=== PATIENT | male | born 1960 | race Caucasian/White ===

== ENCOUNTER → 2018-06-06 | Outpatient (CLI) | payer OTHER ==
--- NOTE | 2018-06-06 12:01 | PCVCIMAG ---
APPROVED REPORT Study performed: 06/06/2018 10:38:28 Exam: Stress Echocardiogram Indication: CAD s/p CABG, Hypertension, Hyperlipidemia Patient Location: Echo lab Stress Nurse: Paty Gupta RN Room #: 2 Status: routine Ht: 5 ft 10 in HR: 68 bpm BP: 136/90 mmHg Rhythm: NSR Medical History Medical History: CAD s/p CABG Cardiac Risk Factors: HTN, Hyperlipidemia, FHX of CAD, Tobacco History (Current/Recent) Previous Cardiac Procedures: CABG Exercise History: Physically active Physical Disabilities: Recent rt knee injury Procedure The patient underwent an Exercise Stress Test using the Emmanuel Protocol. Blood pressure, heart rate, and EKG were monitored. An Echocardiogram was performed by biological technician in four stages in quad fashion. At peak stress, four selected images were obtained and placed side by side with resting images for comparison. Stress Test Details Stress Test: Exercise stress testing was performed using a Emmanuel protocol. HR Resting HR: 68 bpmMax Heart Rate (APMHR): 163 bpm Max HR Achieved: 146 bpmTarget HR (85% APMHR): 138 bpm % of APMHR: 89 Recovery HR: 85 bpm HR response to stress: Normal HR response to stress BP Resting BP: 136/90 mmHg Max BP: 160/100 mmHg Recovery BP: 148/90 mmHg BP response to stress: Normal blood pressure response to stress. ECG Resting ECG: Sinus Rhythm Stress ECG: Sinus Rhythm ST Change: Non-ischemic Maximum ST Deviation: 0 mm Arrhythmia: Rare PVCs Recovery ECG: Sinus Rhythm Recovery ST Change: Non-ischemic Recovery ST Deviation: 0 mm Recovery Arrhythmia: None Clinical Reason for Termination: Maximal effort Stress Symptoms: fatigue,rt knee pain Exercise duration: 9 min 30 sec Highest Stage Achieved: Stage 4: 4.2 mph at 16% grade. Exercise capacity: 10.7 METs Overall Exercise Capacity for Age: Good Angina Score: None No complications. Stress ECG Conclusion The patient exercised according to the EMMANUEL protocol for 9:30 mins; achieving a work level of 10.7 METS. The resting heart rate of 68 bpm aman to a maximum heart rate of 146 bpm. This value represents 89% of the maximal, age-predicted heart rate. The resting blood pressure of 136/90 mmHg, aman to a maximum blood pressure of 160/100 mmHg. The exercise test was stopped due to fatigue and knee pain. Ames Treadmill Score is 9.0 which is Low risk. Pre-Stress Echo The resting Echocardiogram showed normal left ventricular contractility with an estimated Ejection Fraction of about 55-60%. Normal wall motion in all segments on baseline images. Post-Stress Echo The stress Echocardiogram showed normal left ventricular contractility with an estimated Ejection Fraction of about 65-70%. Normal augmentation of wall motion in all segments on post stress images. Conclusion Clinical Response: Non-ischemic Exercise Capacity: Superior Stress ECG Response: Non-ischemic Stress Echo Images: Non-ischemic No clinical, EKG or echocardiographic evidence for ischemia. No echocardiographic evidence for exercise induced ischemia. Normal stress echocardiogram with maximal exercise stress. <Conclusion> No clinical, EKG or echocardiographic evidence for ischemia. No echocardiographic evidence for exercise induced ischemia. Normal stress echocardiogram with maximal exercise stress.
== END | disposition home or self-care (01) ==
LOC: PCVCIMAG 10:36
PROVIDERS: ATTEND Internal Medicine
DX: I25.810 Atherosclerosis of coronary artery bypass graft(s) without angina pectoris (principal); K76.0 Fatty (change of) liver, not elsewhere classified; I10 Essential (primary) hypertension; E78.5 Hyperlipidemia, unspecified; F17.210 Nicotine dependence, cigarettes, uncomplicated; E78.00 Pure hypercholesterolemia, unspecified
CPT/HCPCS: 93325; 93351